=== PATIENT | female | born 1950 | race Hispanic/Latino ===

== ENCOUNTER 2020-06-18 05:43 | Emergency (ER) | payer OTHER ==
--- OUTSIDE RECORDS SUMMARY | 2020-06-18 05:47 | XMS REPORT | Continuity of Care Document ---
:1950 Author Organization [facility] t Address [address] [place] [address] Care Team Providers Name Role Phone Talon Mason MD Attending Clinician Problems This patient has no known problems. Allergies, Adverse Reactions, Alerts This patient has no known allergies or adverse reactions. Medications This patient has no known medications. Procedures This patient has no known procedures. Encounters Start End Encounter Admission Attending Care Care Encounter Source Date/Time Date/Time Type Type Clinicians Facility Department ID 2019-06-14 2019-06-14 Pre Visit GERTRUDIS Mason [id number] 00:00:00 00:00:00 Outreach Talon Guillen [id number] [place] [id number] [facility] [id number] formerly [facility] [address] [facility] Results This patient has no known results.
[2020-06-18] MEDS ORDERED: METHYLPREDNISOLONE 125 MG INJ ONE (06:19)
[2020-06-18] MEDS ORDERED: DIPHENHYDRAMINE 50 MG/ML VIAL ONE ×2 (06:20→07:50)
[2020-06-18] MEDS ORDERED: FAMOTIDINE 20 MG/2 ML VIAL IV ONE ×2 (06:20→07:51)
--- NOTE | 2020-06-18 06:52 | EDPHYS ---
Physician Documentation [facility] Name: Sharon Bowie Age: 70 yrs Sex: Female : 1950 Arrival Date: 06/18/2020 Time: 05:49 Bed 6 Private MD: SHAGGY Physician Young Springer HPI: 06/18 05:59 This 70 yrs old Female presents to ER via Unassigned with complaints of tw4 Allergic Reaction. 05:59 The patient presents with diffuse swelling, itching, rash. Onset: The symptoms/episode tw4 began/occurred 2 day(s) ago. Associated signs and symptoms: The patient has no apparent associated signs or symptoms. Possible causes: The patient has no known obvious cause for the symptoms. At home the patient or guardian has treated the symptoms with nothing. Severity of symptoms: At their worst the symptoms were moderate in the emergency department the symptoms are unchanged. The patient has not experienced similar symptoms in the past. Historical: - Allergies: 06:04 No Known Allergies; em - PMHx: 06:04 Gastric Reflux; Osteoporosis; em - PSHx: 06:04 Cholecystectomy; Hysterectomy; em - Immunization history:: Adult Immunizations up to date. - Social history:: Smoking status: Patient denies any tobacco usage or history of. ROS: 05:59 Constitutional: Negative for fever, chills, and weight loss, Eyes: Negative for injury, tw4 pain, redness, and discharge, Cardiovascular: Negative for chest pain, palpitations, and edema, Respiratory: Negative for shortness of breath, cough, wheezing, and pleuritic chest pain, Abdomen/GI: Negative for abdominal pain, nausea, vomiting, diarrhea, and constipation, Back: Negative for injury and pain, Neuro: Negative for headache, weakness, numbness, tingling, and seizure. 05:59 Skin: Positive for swelling. Exam: 05:59 Constitutional: This is a well developed, well nourished patient who is awake, alert, tw4 and in no acute distress. Head/Face: Normocephalic, atraumatic. 05:59 Chest/axilla: Normal chest wall appearance and motion. Nontender with no deformity. No lesions are appreciated. Cardiovascular: Regular rate and rhythm with a normal S1 and S2. No gallops, murmurs, or rubs. Normal PMI, no JVD. No pulse deficits. Respiratory: Lungs have equal breath sounds bilaterally, clear to auscultation and percussion. No rales, rhonchi or wheezes noted. No increased work of breathing, no retractions or nasal flaring. Abdomen/GI: Soft, non-tender, with normal bowel sounds. No distension or tympany. No guarding or rebound. No evidence of tenderness throughout. Back: No spinal tenderness. No costovertebral tenderness. Full range of motion. 05:59 Eyes: Periorbital structures: swelling, that is moderate, bilaterally. 05:59 Skin: rash can be described as urticarial. Vital Signs: 05:59 BP 144 / 70; Pulse 62; Resp 16; Temp 97.6(O); Pulse Ox 100% on R/A; Weight 71.67 kg; em Height 5 ft. 2 in. (157.48 cm); Pain 0/10; 07:30 BP 148 / 63; Pulse 71; Resp 18; Pulse Ox 99% on R/A; tw2 08:42 BP 109 / 35; Pulse 88; Resp 17; Pulse Ox 99% on R/A; tw2 09:23 BP 136 / 43; Pulse 81; Resp 17; Pulse Ox 99% on R/A; tw2 05:59 Body Mass Index 28.90 (71.67 kg, 157.48 cm) em MDM: 06:49 Data reviewed: vital signs, nurses notes. Data interpreted: Pulse oximetry: tw4 Interpretation: normal. Counseling: I had a detailed discussion with the patient and/or guardian regarding: the historical points, exam findings, and any diagnostic results supporting the discharge/admit diagnosis. Special discussion: I discussed with the patient/guardian in detail that at this point there is no indication for admission to the hospital. It is understood, however, that if the symptoms persist or worsen the patient needs to return immediately for re-evaluation. 06:51 Patient medically screened. tw4 Administered Medications: 06:07 Drug: SOLU-Medrol 125 mg Route: IVP; Site: right antecubital; ea 06:56 Follow up: Response: No adverse reaction rr5 06:07 Drug: Benadryl 25 mg Route: IVP; Site: right antecubital; ea 06:56 Follow up: Response: No adverse reaction rr5 06:08 Drug: Pepcid 20 mg Route: IVP; Site: right antecubital; ea 06:56 Follow up: Response: No adverse reaction rr5 07:15 Drug: EPINEPHrine 1mg/mL 1:1,000 0.3 ml Route: Sub-Q; Site: right upper arm; tw2 08:00 Follow up: Response: No adverse reaction; No change in condition tw2 07:35 Drug: Pepcid 20 mg Route: IVP; Site: right antecubital; tw2 08:43 Follow up: Response: No adverse reaction tw2 07:38 Drug: Benadryl 25 mg Route: IVP; Site: right antecubital; tw2 08:43 Follow up: Response: No adverse reaction tw2 07:38 Drug: predniSONE 60 mg Route: PO; tw2 08:44 Follow up: Response: No adverse reaction tw2 08:09 Drug: NS 0.9% 1000 ml Route: IV; Rate: 1 bolus; Site: right antecubital; tw2 09:30 Follow up: Response: No adverse reaction; IV Status: Completed infusion; IV Intake: tw2 1000ml Disposition: 06/18/20 07:29 Discharged to Home. Impression: Allergic reaction, Angioneurotic edema. - Condition is Stable. - Discharge Instructions: Angioedema, [id number], Allergies, Adult, Angioedema. - Prescriptions for Benadryl 25 mg Oral Capsule - take 1 capsule by ORAL route every 6 hours As needed; 30 tablet. Pepcid 20 mg Oral Tablet - take 1 tablet by ORAL route every 12 hours for 10 days; 20 tablet. Prednisone 20 mg Oral Tablet - take 2 tablet by ORAL route once daily for 5 days; 10 tablet. EpiPen 0.3 mg Injection auto- injector - inject 1 pen by INTRAMUSCULAR route one time Inject into the outer portion of the thigh, through clothing if necessary. Indicated in the emergency treatment of allergic reactions; 1 Container. - Medication Reconciliation Form, Thank You Letter, Antibiotic Education, Prescription Opioid Use form. - Follow up: Private Physician; When: Upon discharge from the Emergency Department; Reason: Recheck today's complaints, Continuance of care, Re-evaluation by your physician. - Problem is new. - Symptoms have improved. Signatures: Young Springer MD MD cha Munoz, Edgar RN RN Lori Gomez RN RN tw2 Joanne Tran, RN RN Eric Owens MD MD tw4 Jerman Campuzano RN rr5 Corrections: (The following items were deleted from the chart) 07:03 06:51 06/18/2020 06:51 Discharged to Home. Impression: allergic reaction. Condition is tw4 Stable. Forms are Medication Reconciliation Form, Thank You Letter, Antibiotic Education, Prescription Opioid Use. Follow up: Private Physician; When: Upon discharge from the Emergency Department; Reason: Recheck today's complaints, Continuance of care, Re-evaluation by your physician. Problem is new. Symptoms have improved. tw4 09:56 07:29 06/18/2020 07:29 Discharged to Home. Impression: Allergic reaction; Angioneurotic tw2 edema. Condition is Stable. Discharge Instructions: Allergies, Adult, Angioedema. Prescriptions for Medrol (Charlie) 4 mg Oral Tablets, Dose Pack - take 1 tablet by ORAL route as directed - follow package instructions; 1 packet, Medrol (Charlie) 4 mg Oral Tablets, Dose Pack - take 1 tablet by ORAL route as directed - follow package instructions; 1 packet. and Forms are Medication Reconciliation Form, Thank You Letter, Antibiotic Education, Prescription Opioid Use. Follow up: Private Physician; When: Upon discharge from the Emergency Department; Reason: Recheck today's complaints, Continuance of care, Re-evaluation by your physician. Problem is new. Symptoms have improved. chantal
--- NOTE | 2020-06-18 06:52 | ER ---
Nurse's Notes [facility] Name: Sharon Bowie Age: 70 yrs Sex: Female : 1950 Arrival Date: 06/18/2020 Time: 05:49 Bed 6 Private MD: Diagnosis: Allergic reaction;Angioneurotic edema Presentation: 06/18 05:59 Chief complaint: Patient states: facial swelling, hives to ara. arms and itchiness to em left ear for 2 days, drank coffee with coconut oil, denies having allergies to coconuts, denies shortness of breath or trouble breathing, has not had any medication today. Coronavirus screen: Client denies travel out of the [place] in the last 14 days. Ebola Screen: Patient negative for fever greater than or equal to 101.5 degrees Fahrenheit, and additional compatible Ebola Virus Disease symptoms Patient denies exposure to infectious person. Patient denies travel to an Ebola-affected area in the 21 days before illness onset. No symptoms or risks identified at this time. Onset: The symptoms/episode began/occurred 2 day(s) ago. Anaphylaxis evaluation, no signs or symptoms of anaphylaxis were noted. Initial Sepsis Screen: Does the patient meet any 2 criteria? No. Patient's initial sepsis screen is negative. Does the patient have a suspected source of infection? No. Patient's initial sepsis screen is negative. Risk Assessment: Do you want to hurt yourself or someone else? Patient reports no desire to harm self or others. Onset of symptoms was June 18, 2020. 05:59 Method Of Arrival: Ambulatory em 06:06 Acuity: KATHERINE 4 em Historical: - Allergies: 06:04 No Known Allergies; em - PMHx: 06:04 Gastric Reflux; Osteoporosis; em - PSHx: 06:04 Cholecystectomy; Hysterectomy; em - Immunization history:: Adult Immunizations up to date. - Social history:: Smoking status: Patient denies any tobacco usage or history of. Screenin:05 Abuse screen: Denies threats or abuse. Nutritional screening: No deficits noted. em Tuberculosis screening: No symptoms or risk factors identified. Fall Risk None identified. Assessment: 06:14 General: Appears uncomfortable, Behavior is appropriate for age. Pain: Denies pain. ea Neuro: Level of Consciousness is awake, alert, obeys commands, Oriented to person, place, time. Respiratory: Airway is patent Respiratory effort is even, unlabored, Respiratory pattern is regular, symmetrical. Derm: Rash noted that is. 07:30 Reassessment: Patient appears in no apparent distress at this time. No changes from tw2 previously documented assessment. Patient and/or family updated on plan of care and expected duration. Pain level reassessed. Patient is alert, oriented x 3, equal unlabored respirations, skin warm/dry/pink. 08:42 Reassessment: Patient appears in no apparent distress at this time. No changes from tw2 previously documented assessment. Patient and/or family updated on plan of care and expected duration. Pain level reassessed. Patient is alert, oriented x 3, equal unlabored respirations, skin warm/dry/pink. 09:54 Reassessment: Patient appears in no apparent distress at this time. Patient and/or tw2 family updated on plan of care and expected duration. Pain level reassessed. Patient is alert, oriented x 3, equal unlabored respirations, skin warm/dry/pink. Patient states feeling better. Patient states symptoms have improved. Vital Signs: 05:59 BP 144 / 70; Pulse 62; Resp 16; Temp 97.6(O); Pulse Ox 100% on R/A; Weight 71.67 kg; em Height 5 ft. 2 in. (157.48 cm); Pain 0/10; 07:30 BP 148 / 63; Pulse 71; Resp 18; Pulse Ox 99% on R/A; tw2 08:42 BP 109 / 35; Pulse 88; Resp 17; Pulse Ox 99% on R/A; tw2 09:23 BP 136 / 43; Pulse 81; Resp 17; Pulse Ox 99% on R/A; tw2 05:59 Body Mass Index 28.90 (71.67 kg, 157.48 cm) em ED Course: 05:49 Patient arrived in ED. es 05:54 Eric Miramontes MD is Attending Physician. tw4 05:59 Inserted saline lock: 22 gauge in right antecubital area, using aseptic technique. ds4 Blood collected. 06:03 Triage completed. em 06:04 Arm band placed on. em 06:05 Patient has correct armband on for positive identification. Placed in gown. Pulse ox em on. NIBP on. 06:13 Joanne Tran RN is Primary Nurse. ea 07:07 Primary Nurse role handed off by Joanne Tran RN tw2 07:07 Lori Avila RN is Primary Nurse. tw2 07:25 Attending Physician role handed off by Eric Miramontes MD chantal 07:25 Young Springer MD is Attending Physician. cahntal 08:10 Awaiting: completion of IV fluids and monitoring PRIOR to discharge. tw2 09:32 Awaiting transportation. tw2 09:55 No provider procedures requiring assistance completed. IV discontinued, intact, tw2 bleeding controlled, No redness/swelling at site. Pressure dressing applied. Administered Medications: 06:07 Drug: SOLU-Medrol 125 mg Route: IVP; Site: right antecubital; ea 06:56 Follow up: Response: No adverse reaction rr5 06:07 Drug: Benadryl 25 mg Route: IVP; Site: right antecubital; ea 06:56 Follow up: Response: No adverse reaction rr5 06:08 Drug: Pepcid 20 mg Route: IVP; Site: right antecubital; ea 06:56 Follow up: Response: No adverse reaction rr5 07:15 Drug: EPINEPHrine 1mg/mL 1:1,000 0.3 ml Route: Sub-Q; Site: right upper arm; tw2 08:00 Follow up: Response: No adverse reaction; No change in condition tw2 07:35 Drug: Pepcid 20 mg Route: IVP; Site: right antecubital; tw2 08:43 Follow up: Response: No adverse reaction tw2 07:38 Drug: Benadryl 25 mg Route: IVP; Site: right antecubital; tw2 08:43 Follow up: Response: No adverse reaction tw2 07:38 Drug: predniSONE 60 mg Route: PO; tw2 08:44 Follow up: Response: No adverse reaction tw2 08:09 Drug: NS 0.9% 1000 ml Route: IV; Rate: 1 bolus; Site: right antecubital; tw2 09:30 Follow up: Response: No adverse reaction; IV Status: Completed infusion; IV Intake: tw2 1000ml Intake: 09:30 IV: 1000ml; Total: 1000ml. tw2 Outcome: 06:51 Discharge ordered by . tw4 07:29 Discharge ordered by . chantal 09:55 Discharged to home ambulatory, with family. tw2 09:55 Condition: stable 09:55 Discharge instructions given to patient, Instructed on discharge instructions, follow up and referral plans. no drinking with medication, no driving heavy equipment, medication usage, Demonstrated understanding of instructions, follow-up care, medications, Prescriptions given X 4. 09:56 Patient left the ED. tw2 Signatures: Young Springer MD MD cha Salyer, Edna es Munoz, Edgar RN RN Michael Nj 4 Lori Avila RN RN tw2 Joanne Tran RN RN ea Wadley, Terrence, MD MD tw4 Jerman Campuzano RN RN rr5 Corrections: (The following items were deleted from the chart) 06:06 05:59 Acuity: KATHERINE 3 em em
[2020-06-18] MEDS ORDERED: EPINEPHRINE/PF 1 MG/ML AMP ONE (07:27)
[2020-06-18] MEDS ORDERED: predniSONE 20 MG TAB ONE (07:50)
[2020-06-18] MEDS ORDERED: NA CHLORIDE 0.9% 1,000 ML ONE (08:24)
[2020-06-18 10:01] VITALS: TEMP 97.6
[2020-06-18 10:03] VITALS: O2SAT 99
[2020-06-18 10:05] VITALS: BP 136/43
== END 2020-06-18 09:56 | disposition home or self-care (01) ==
LOC: ER 05:43
DX: T78.3XXA Angioneurotic edema, initial encounter (principal)
CPT/HCPCS: J0171; J1200 ×2; J7030; J2930; 96361; 96372; 96374; 96375; 99284; J7512

== ENCOUNTER 2021-10-12 20:44 | Emergency (ER) | payer OTHER ==
[2021-10-12] MEDS ORDERED: METOCLOPRAMIDE 10 MG/2mL INJ ONE (21:21)
[2021-10-12] MEDS ORDERED: NA CHLORIDE 0.9% 1,000 ML ONE (21:22)
[2021-10-12] MEDS ORDERED: MECLIZINE HCL 12.5 MG TAB ONE (21:22)
[2021-10-12 21:45] LABS: Absolute Lymphocytes (CBC) 2.6 K/uL (0.7-4.9); Hematocrit 39.6 % (36.0-45.0); Lymphocytes % 38.5 % (15.3-44.8); MCV 92.2 fL (80-100); MPV 7.8 fL (7.6-11.3)
[2021-10-12 21:49] LABS: Protime INR 0.96
[2021-10-12 21:59] LABS: Potassium 3.6 mmol/L (3.5-5.1); Troponin High Sensitivity 4.6 pg/mL (<58.9)
[2021-10-12 23:04] LABS: Urine Blood Trace-intact (Negative); Urine Glucose Negative (Negative); Urine Protein Negative (Negative); Urine Specific Gravity 1.015 (1.005-1.030)
--- NOTE | 2021-10-13 00:25 | EDPHYS ---
Physician Documentation [facility] Name: Sharon Bowie Age: 71 yrs Sex: Female : 1950 Arrival Date: 10/12/2021 Time: 20:53 Bed 8 Private MD: ED Physician Brent Stanford HPI: 10/12 21:59 This 71 yrs old Female presents to ER via Ambulatory with complaints of rn Headache. 21:59 The patient complains of pain to the forehead, right side of head. The patient rn describes the headache as aching. Onset: The symptoms/episode began/occurred 4 day(s) ago. Associated signs and symptoms: Pertinent negatives: altered mental status, fever, neck stiffness, rash, vision changes, vision loss, vomiting, weakness. Severity of symptoms: At its worst the pain was moderate, in the emergency department the pain is unchanged. Headache History: Denies prior headaches. The symptoms are alleviated by nothing. the symptoms are aggravated by nothing. The patient has not experienced similar symptoms in the past. The patient has been recently seen by a physician:. Pt reports headache for 4 days, right sided, initially thought was a problem with her eye, went to eye doctor, had something in right eye that was removed and right eye pain improved. Headache still persists. No injury or head trauma. No focal neuro complaint. No vomiting/seizure/chest pain. Reports noticed blood pressure was high and came in for evaluation. Compliant with BP meds. No vision loss or changes.. Historical: - Allergies: 21:07 No Known Allergies; kl - Home Meds: 21:07 amlodipine 5 mg tab 1 tab once daily [Active]; kl - PMHx: 21:07 Gastric Reflux; Osteoporosis; hypertension; kl - Immunization history:: Adult Immunizations not up to date, Client reports having NOT received the Covid vaccine. - Social history:: Smoking status: Patient denies any tobacco usage or history of. - Family history:: not pertinent. - Hospitalizations: : No recent hospitalization is reported. ROS: 21:59 Constitutional: Negative for fever, chills, and weight loss, Eyes: Negative for injury, rn pain, redness, and discharge, Neck: Negative for injury, pain, and swelling, Cardiovascular: Negative for chest pain, palpitations, and edema, Respiratory: Negative for shortness of breath, cough, wheezing, and pleuritic chest pain, Abdomen/GI: Negative for abdominal pain, nausea, vomiting, diarrhea, and constipation, Back: Negative for injury and pain, MS/Extremity: Negative for injury and deformity, Skin: Negative for injury, rash, and discoloration, Neuro: Negative for weakness, numbness, tingling, and seizure. Exam: 21:59 Constitutional: This is a well developed, well nourished patient who is awake, alert, rn and in no acute distress. Head/Face: Normocephalic, atraumatic. No temporal tenderness Eyes: Pupils equal round and reactive to light, extra-ocular motions intact. Periorbital areas with no swelling, redness, or edema. Neck: Trachea midline, no thyromegaly or masses palpated, and no cervical lymphadenopathy. Supple, full range of motion without nuchal rigidity, or vertebral point tenderness. No Meningismus. Cardiovascular: Regular rate and rhythm. No pulse deficits. Respiratory: No increased work of breathing, no retractions or nasal flaring. Abdomen/GI: Soft, non-tender Skin: Warm, dry with normal turgor. Normal color with no rashes, no lesions, and no evidence of cellulitis. MS/ Extremity: Pulses equal, no cyanosis. Neurovascular intact. Full, normal range of motion. Equal circumference. Neuro: Awake and alert, GCS 15, oriented to person, place, time, and situation. Cranial nerves II-XII grossly intact. Motor strength 5/5 in all extremities. Sensory grossly intact. Cerebellar exam normal. Normal gait. Vital Signs: 21:04 BP 170 / 71; Pulse 66; Resp 16; Temp 98.3; Pulse Ox 99% on R/A; Pain 8/10; kl 21:43 BP 156 / 71; Pulse 71; Resp 16; Pulse Ox 100% on R/A; kl 22:16 BP 140 / 57; Pulse 68; Pulse Ox 99% on R/A; Pain 0/10; kl 22:36 BP 140 / 57; Pulse 65; Resp 18 S; Pulse Ox 99% on R/A; aa9 23:51 BP 126 / 64; Pulse 68; Resp 18; Pulse Ox 99% on R/A; Pain 0/10; kl Rossy Coma Score: 10/13 00:23 Eye Response: spontaneous(4). Verbal Response: oriented(5). Motor Response: obeys rn commands(6). Total: 15. MDM: 10/12 20:57 Patient medically screened. rn 10/13 00:23 Differential diagnosis: hypertensive headache, intracerebral hemorrhage, migraine, rn tension headache, vasomotor headache, UTI. Data reviewed: vital signs, nurses notes, lab test result(s), radiologic studies, CT scan, and as a result, I will discharge patient. Counseling: I had a detailed discussion with the patient and/or guardian regarding: the historical points, exam findings, and any diagnostic results supporting the discharge/admit diagnosis, lab results, radiology results, the need for outpatient follow up, to return to the emergency department if symptoms worsen or persist or if there are any questions or concerns that arise at home. Response to treatment: the patient's symptoms have markedly improved after treatment, the patient's condition has returned to base line, the patient is now symptom free, and as a result, I will discharge patient. Special discussion: I have referred the patient to see his PCP for further evaluation of high blood pressure. I discussed with the patient/guardian in detail that at this point there is no indication for admission to the hospital. It is understood, however, that if the symptoms persist or worsen the patient needs to return immediately for re-evaluation. Based on the history and exam findings, there is no indication for further emergent testing or inpatient evaluation. I discussed with the patient/guardian the need to see the primary care provider for further evaluation of the symptoms. ED course: Pt improved, CT head and CT head angio neg for acute findings. Stable vitals and BP improved after pain improved. + UTI with increased urinary frequency per patient, will dc home with abx and meclizine as patient reports helped.. 10/12 21:05 Order name: CBC with Diff; Complete Time: 21:59 rn 10/12 21:05 Order name: Basic Metabolic Panel; Complete Time: 22:03 rn 10/12 21:05 Order name: Protime (+inr); Complete Time: 21:59 rn 10/12 21:05 Order name: Ptt, Activated; Complete Time: 21:59 rn 10/12 21:05 Order name: Troponin High Sensitivity; Complete Time: 22:03 rn 10/12 23:04 Order name: Urine Dipstick-Ancillary; Complete Time: 23:15 EDMS 10/12 21:05 Order name: CT Head Brain wo Cont rn 10/12 21:05 Order name: EKG; Complete Time: 21:06 rn 10/12 21:06 Order name: CT Head Angio rn 10/12 21:09 Order name: Head Brain Wo Cont EDMS 10/12 21:05 Order name: IV Start; Complete Time: 21:42 rn 10/12 21:05 Order name: EKG - Nurse/Tech; Complete Time: 21:41 rn 10/12 21:05 Order name: Cardiac monitoring; Complete Time: 21:41 rn 10/12 21:05 Order name: O2 Sat Monitoring; Complete Time: 21:41 rn Administered Medications: 10/12 21:20 Drug: NS 0.9% 1000 ml Route: IV; Rate: 1000 ml; Site: right antecubital; 10/13 00:49 Follow up: Response: No adverse reaction; IV Status: Completed infusion; IV Intake: as6 1000ml 10/12 21:20 Drug: Reglan (metoCLOPramide) 10 mg Route: IVP; Site: right antecubital; 22:17 Follow up: Response: Marked relief of symptoms 21:20 Drug: Meclizine 50 mg Route: PO; 22:17 Follow up: Response: No adverse reaction 10/13 00:32 Drug: Rocephin (cefTRIAXone) 1 grams Route: IV; Rate: calculated rate; Site: right kl antecubital; 00:49 Follow up: Response: No adverse reaction; IV Status: Completed infusion; IV Intake: [id number] Disposition Summary: 10/13/21 00:24 Discharge Ordered Location: Home rn Problem: new rn Symptoms: have improved rn Condition: Stable rn Diagnosis - Headache rn - UTI/ Urinary tract infection, site not specified rn Followup: rn - With: Private Physician - When: As needed - Reason: Recheck today's complaints, Re-evaluation by your physician Discharge Instructions: - Discharge Summary Sheet rn - General Headache Without Cause rn - Hypertension, Adult rn - Urinary Tract Infection, Adult rn Forms: - Medication Reconciliation Form rn - Thank You Letter rn - Antibiotic machine learning intern - Prescription Opioid Use rn Prescriptions: - Meclizine 25 mg Oral Tablet - take 1 tablet by ORAL route every 8 hours As needed; 20 tablet; Refills: 0, rn Product Selection Permitted - cefpodoxime 100 mg Oral Tablet - take 2 tablets by ORAL route every 12 hours for 10 days take with food; 40 rn tablet; Refills: 0, Product Selection Permitted Signatures: Dispatcher [employer] Briseida Monteiro, RN RN Brent Banda MD MD rn Slawson, Ashby RN as6
--- NOTE | 2021-10-13 00:25 | ER ---
Nurse's Notes [facility] Name: Sharon Bowie Age: 71 yrs Sex: Female : 1950 Arrival Date: 10/12/2021 Time: 20:53 Bed 8 Private MD: Diagnosis: Headache;UTI/ Urinary tract infection, site not specified Presentation: 10/12 21:04 Chief complaint: Patient states: headache off and on x 4 days reports positive kl dizziness and ringing of ears BP at home reportedly 140-150s systolice. Coronavirus screen: Vaccine status: Patient reports being unvaccinated. Client denies travel out of the [place] in the last 14 days. Ebola Screen: Patient negative for fever greater than or equal to 101.5 degrees Fahrenheit, and additional compatible Ebola Virus Disease symptoms. Initial Sepsis Screen: Does the patient meet any 2 criteria? No. Patient's initial sepsis screen is negative. Does the patient have a suspected source of infection? No. Patient's initial sepsis screen is negative. Risk Assessment: Do you want to hurt yourself or someone else? Patient reports no desire to harm self or others. Onset of symptoms was October 08, 2021. 21:04 Method Of Arrival: Ambulatory kl 21:04 Acuity: KATHERINE 3 kl Triage Assessment: 21:09 Headache History: Denies prior headaches. General: Appears comfortable, well groomed, kl well developed, Behavior is calm, cooperative, appropriate for age. Pain: Pain currently is 8 out of 10 on a pain scale. Pain began 2-3 days ago. Also complains of dizziness. EENT: No deficits noted. Reports right eyes pain foreign object removed yesterday. Neuro: Level of Consciousness is awake, alert, obeys commands, Oriented to person, place, time, situation, Hand Loom Weaver are equal bilaterally Moves all extremities. Full function Gait is steady, Speech is normal, Facial symmetry appears normal, Pupils are PERRLA, Intact. Cardiovascular: No deficits noted. Respiratory: No deficits noted. Airway is patent Trachea midline Respiratory effort is even, unlabored. GI: No deficits noted. No signs and/or symptoms were reported involving the gastrointestinal system. : No deficits noted. No signs and/or symptoms were reported regarding the genitourinary system. Derm: No deficits noted. No signs and/or symptoms reported regarding the dermatologic system. Musculoskeletal: No deficits noted. No signs and/or symptoms reported regarding the musculoskeletal system. Historical: - Allergies: 21:07 No Known Allergies; kl - Home Meds: 21:07 amlodipine 5 mg tab 1 tab once daily [Active]; kl - PMHx: 21:07 Gastric Reflux; Osteoporosis; hypertension; kl - Immunization history:: Adult Immunizations not up to date, Client reports having NOT received the Covid vaccine. - Social history:: Smoking status: Patient denies any tobacco usage or history of. - Family history:: not pertinent. - Hospitalizations: : No recent hospitalization is reported. Screenin:43 Abuse screen: Denies threats or abuse. Nutritional screening: No deficits noted. kl Tuberculosis screening: No symptoms or risk factors identified. Fall Risk None identified. Assessment: 21:11 General: Appears in no apparent distress. well groomed, well developed. Pain: Complains kl of pain in forehead, right eye and right base of the skull Pain currently is 8 out of 10 on a pain scale. Vital Signs: 21:04 BP 170 / 71; Pulse 66; Resp 16; Temp 98.3; Pulse Ox 99% on R/A; Pain 8/10; kl 21:43 BP 156 / 71; Pulse 71; Resp 16; Pulse Ox 100% on R/A; kl 22:16 BP 140 / 57; Pulse 68; Pulse Ox 99% on R/A; Pain 0/10; kl 22:36 BP 140 / 57; Pulse 65; Resp 18 S; Pulse Ox 99% on R/A; aa9 23:51 BP 126 / 64; Pulse 68; Resp 18; Pulse Ox 99% on R/A; Pain 0/10; kl Rossy Coma Score: 10/13 00:23 Eye Response: spontaneous(4). Verbal Response: oriented(5). Motor Response: obeys rn commands(6). Total: 15. ED Course: 10/12 20:53 Patient arrived in ED. bp1 20:57 Brent Stanford MD is Attending Physician. rn 21:02 Stephen Cross RN is Primary Nurse. as6 21:07 Triage completed. kl 21:15 Inserted saline lock: 20 gauge in right antecubital area, using aseptic technique. kl 21:42 Troponin High Sensitivity Sent. kl 21:42 Protime (+inr) Sent. kl 21:42 Ptt, Activated Sent. kl 21:42 Basic Metabolic Panel Sent. kl 21:42 CBC with Diff Sent. kl 21:43 Patient has correct armband on for positive identification. Bed in low position. Call light in reach. Side rails up X2. 22:56 Head Brain Wo Cont In Process Unspecified. EDMS 22:57 CT Head Angio In Process Unspecified. EDMS 23:30 No apparent distress. Resting quietly. 07 00:49 No provider procedures requiring assistance completed. IV discontinued, intact, as6 bleeding controlled, No redness/swelling at site. Pressure dressing applied. 00:50 Arm band placed on. as6 Administered Medications: 10/12 21:20 Drug: NS 0.9% 1000 ml Route: IV; Rate: 1000 ml; Site: right antecubital; 10/13 00:49 Follow up: Response: No adverse reaction; IV Status: Completed infusion; IV Intake: as6 1000ml 10/12 21:20 Drug: Reglan (metoCLOPramide) 10 mg Route: IVP; Site: right antecubital; 22:17 Follow up: Response: Marked relief of symptoms 21:20 Drug: Meclizine 50 mg Route: PO; 22:17 Follow up: Response: No adverse reaction 10/13 00:32 Drug: Rocephin (cefTRIAXone) 1 grams Route: IV; Rate: calculated rate; Site: right antecubital; 00:49 Follow up: Response: No adverse reaction; IV Status: Completed infusion; IV Intake: 28etfl3 Medication: 00:49 VIS not applicable for this client. as6 Intake: 00:49 IV: 50ml; Total: 50ml. as6 00:49 IV: 1000ml; Total: 1050ml. as6 Outcome: 00:24 Discharge ordered by . rn 00:50 Discharged to home ambulatory, with family. as6 00:50 Condition: stable 00:50 Discharge instructions given to patient, family, Instructed on discharge instructions, follow up and referral plans. medication usage, Demonstrated understanding of instructions, follow-up care, medications, Prescriptions given X 2. 00:50 Patient left the ED. as6 Signatures: Dispatcher [employer] Briseida Monteiro RN RN kl Nieto, Roman, MD MD rn Paniauga, Brittany bp1 Slawson, Stephen, RN RN as6 Angelique Wolfe, RN RN aa9
[2021-10-13] MEDS ORDERED: CEFTRIAXONE 1000 MG/VIAL ONE (00:35)
[2021-10-13] MEDS ORDERED: NA CHLORIDE 0.9% 50 ML ONE (00:35)
[2021-10-13 01:13] VITALS: TEMP 98.3
[2021-10-13 01:16] VITALS: O2SAT 99
[2021-10-13 01:22] VITALS: BP 126/64
--- NOTE | 2021-10-13 10:59 | RAD REPORT ---
EXAM DESCRIPTION: CT - Head Brain Wo Cont - 10/13/2021 6:35 am CLINICAL HISTORY: 71 years, Female, Headache, new or worsening COMPARISON: None FINDINGS: Multiple transaxial tomograms of the brain were obtained from the base of the skull to the vertex without contrast. 2-D multiplanar reformats and the coronal and sagittal plane were performed and reviewed. This exam was performed according to our departmental dose-optimization protocol, which includes auto mated exposure control, adjustment of the mA and/or kV according to patient size and/or use of iterat reggie reconstruction technique. Brain parenchyma as well as the bar and white matter differentiation demonstrate to be unremarkable. Mild brain atrophy which is appropriate for patient's age. There is no midline shift and/or mass eff ect. There is no evidence for acute hemorrhage. There are no focal areas of hypodensities. Lateral ventricles and cisterns displace normal appearance. No intra or extra axial fluid collections were seen. The calvarium is intact with no evidence for fracture. The visualized portions of the paranasal sinuses and orbits demonstrate to be clear. IMPRESSION: No acute intracranial hemorrhage identified. Mild brain atrophy which is appropriate for patient's age. Electronically signed by: Pipe Mayfield MD 10/12/2021 11:43 PM CDT Due to temporary technical issues with the PACS/Fluency reporting system, reports are being signed by the in house radiologists without review as a courtesy to insure prompt reporting. The interpreting radiologist is fully responsible for the content of the report.
--- NOTE | 2021-10-13 11:07 | EKG ---
Test Date: 2021-10-12 Test Time: 21:34:48 Business Mail Entry Clerk: JENNIFER MEASUREMENT RESULTS: Intervals: Rate: 67 AK: 154 QRSD: 90 QT: 412 QTc: 435 [place]: P: 18 AK: 154 QRS: 98 T: 79 INTERPRETIVE STATEMENTS: Normal sinus rhythm Rightward axis Abnormal ECG No previous ECG available for comparison Electronically Signed On 10-13-21 11:06:10 CDT by Milton Smtih
--- NOTE | 2021-10-13 15:17 | RAD REPORT ---
EXAM DESCRIPTION: CT - Head angio - 10/13/2021 6:34 am CLINICAL HISTORY: 71 years Female, new headache, right sided, HTN TECHNIQUE: Helical CT axial images are obtained from the base of skull through the vertex with IV co ntrast. Multiplanar reconstruction. MIP reconstruction plus or minus 3D image processing was also p erformed. This exam was performed according to our departmental dose-optimization program, which incl udes automated exposure control, adjustment of the mA and/or kV according to patient size and/or use of iterative reconstruction technique. COMPARISON: Noncontrast CT brain performed same time FINDINGS: Distal aspect of bilateral internal carotid arteries are normal in caliber and morphology without focal stenosis or aneurysm. Aplasia right A1 segment, normal variant. Right A2 and distal b ranches are normal in caliber via contralateral filling through patent ACOM. Right anterior and bilat eral middle cerebral arteries have a normal appearance. . Basilar artery is normal in caliber and morphology without high-grade stenosis or basilar tip aneur ysm. Bilateral posterior cerebral arteries are identified emanating from the basilar tip and are with in normal limits. Non-visualized right PCOM. Non-visualized left PCOM. No aneurysm, branch occlusion, arteriovenous malformation or other vascular anomalies. IMPRESSION: 1. Negative CTA of the brain. Electronically signed by: Yuval Jennings MD 10/12/2021 11:46 PM CDT Due to temporary technical issues with the PACS/Fluency reporting system, reports are being signed by the in house radiologists without review as a courtesy to insure prompt reporting. The interpreting radiologist is fully responsible for the content of the report.
== END 2021-10-13 00:50 | disposition home or self-care (01) ==
LOC: ER 20:44
DX: N39.0 Urinary tract infection, site not specified (principal); I10 Essential (primary) hypertension
CPT/HCPCS: 93005; 85025; 80048; 36415; 85610; 85730; 81003; 84484; 70450; 70496; Q9967; J2765; J8597; J7030